=== PATIENT | male | born 2000 | race African-American/Black ===

== ENCOUNTER 2022-08-30 08:12 | Emergency (ER) | payer OTHER ==
[~2022-08-30] VITALS: Ht 182.9 cm; Wt 93.9 kg
[2022-08-30 08:13] VITALS: BP 135/83
[2022-08-30] MEDS ORDERED: NS 1,000 ML IV ONE (11:10)
[2022-08-30] MEDS ORDERED: KETOROLAC 30 MG/ML 1ML VIAL IV ONE (11:10)
[2022-08-30] MEDS ORDERED: METOCLOPRAMIDE INJ 10MG/2ML VIAL IV ONE (11:10)
[2022-08-30 11:49] LABS: BASO % 0.3 % (0.0-1.0); EOS % 0.1 % (0.0-3.0); HEMATOCRIT 50.9 % (42.0-52.0); HEMOGLOBIN 16.5 g/dl (13.5-17.5); LYMPH # 2.3 10^3/uL (1.5-5.0); LYMPH % 20.6 % (24.0-44.0); MEAN CORPUSCULAR HEMOGLOBIN 28.2 pg (27.0-33.0); MEAN CORPUSCULAR HGB CONC 32.4 g/dl (32.0-36.5); MONO # 0.6 10^3/uL (0.0-0.8); MONO % 5.7 % (2.0-8.0); NEUTROPHILS # 8.3 10^3/uL (1.5-8.5); NEUTROPHILS % 72.9 % (36.0-66.0); PLATELET COUNT, AUTOMATED 241 10^3/uL (150-450); RED BLOOD COUNT 5.85 10^6/uL (4.30-6.10); WHITE BLOOD COUNT 11.3 10^3/uL (4.0-10.0)
[2022-08-30 12:51] LABS: ERYTHROCYTE SEDIMENTATION RATE 2 mm/hr (0-15)
== END 2022-08-30 14:02 | disposition home or self-care (01) ==
LOC: M ED 08:12
DX: R51.9 Headache, unspecified (principal)
CPT/HCPCS: 70450; 80047; 85025; 85652; 96361; 96374; 99283; J1885; J2765

== ENCOUNTER 2022-09-30 09:31 | Emergency (ER) | payer OTHER ==
[~2022-09-30] VITALS: Ht 182.9 cm; Wt 94.3 kg
[2022-09-30] MEDS ORDERED: ACET325C5 PO (09:52)
[2022-09-30] MEDS ORDERED: ACETAMINOPHEN 500 MG TAB PO ONE (14:20)
[2022-09-30] MEDS ORDERED: IBUPROFEN 800 MG TAB PO ONE (14:20)
[2022-09-30 16:25] VITALS: BP 142/86
== END 2022-09-30 16:29 | disposition home or self-care (01) ==
LOC: M ED 09:31
DX: G43.909 Migraine, unspecified, not intractable, without status migrainosus (principal); G51.9 Disorder of facial nerve, unspecified; Z87.820 Personal history of traumatic brain injury; F17.200 Nicotine dependence, unspecified, uncomplicated

== ENCOUNTER 2022-12-01 08:02 | Emergency (ER) | payer OTHER ==
[~2022-12-01] VITALS: Ht 182.9 cm; Wt 92.9 kg
[~2022-12-01 08:02] MED LIST: ACET325C5 PO
[2022-12-01] MEDS ORDERED: ACETAMINOPHEN 500 MG TAB PO ONE (08:45)
[2022-12-01] MEDS ORDERED: IBUPROFEN 800 MG TAB PO ONE (08:45)
[2022-12-01 10:14] VITALS: BP 122/74
== END 2022-12-01 10:15 | disposition home or self-care (01) ==
LOC: M ED 08:02
DX: G43.909 Migraine, unspecified, not intractable, without status migrainosus (principal)

== ENCOUNTER 2023-08-08 10:58 | Emergency (ER) | payer OTHER ==
[~2023-08-08] VITALS: Ht 182.9 cm; Wt 95.5 kg
[2023-08-08] MEDS ORDERED: ACET-683 PO (11:20)
[2023-08-08] MEDS ORDERED: SUMA25TA3 (11:20)
[2023-08-08 13:29] LABS: RSV AMPLIFICATION NEGATIVE (NEGATIVE)
[2023-08-08] MEDS ORDERED: NS 1,000 ML IV ONE (13:45)
[2023-08-08 13:47] VITALS: BP 144/94; TEMP 99.1; O2SAT 100
== END 2023-08-08 14:32 | disposition left against medical advice (07) ==
LOC: M ED 10:58 → EDBD 10:58 → M ED 14:32
DX: Z53.21 Procedure and treatment not carried out due to patient leaving prior to being seen by health care provider (principal)

== ENCOUNTER 2024-02-09 11:21 | Emergency (ER) | payer OTHER ==
[~2024-02-09] VITALS: Ht 182.9 cm; Wt 103.6 kg
[~2024-02-09 11:21] MED LIST changes: +ACET-683 PO; +SUMA25TA3
[2024-02-09] MEDS ORDERED: SUMA25TA3 PO (14:50)
[2024-02-09 15:05] VITALS: BP 135/85; TEMP 98.8; O2SAT 100
== END 2024-02-09 15:06 | disposition home or self-care (01) ==
LOC: M ED 11:21
DX: G43.909 Migraine, unspecified, not intractable, without status migrainosus (principal); Z87.820 Personal history of traumatic brain injury; F17.200 Nicotine dependence, unspecified, uncomplicated; Z79.899 Other long term (current) drug therapy